=== PATIENT | female | born 1950 | race Caucasian/White ===

== ENCOUNTER 2017-03-16 09:50 | Inpatient (IN) | payer MEDICARE, BC ==
[~2017-03-16 09:50] MED LIST: ATROPINE 1 MG/10 ML SYRINGE IV; CEFAZOLIN 1 GM INJ; DIPHENHYDRAMINE 50 MG INJ IV; EPHEDrine SULFATE 50 MG/5 ML SYG IV; FENTAnyl 50 MCG/ML VIAL IV; HYDROmorphONE (0.2 MG/ML) 10ML SYG IV; LABETALOL HCL 20MG INJ IV; LIDOCAINE 100 MG SYRINGE; MEPERIDINE 25 MG INJ IV; MIDAZOLAM 1 MG/ML 2 ML INJ IV; ONDANSETRON 4 MG INJ IV; OXYCODONE/ACETAMINOPHEN (5/325) TAB PO; hydrALAzine 20 MG INJ IV; morphine (1 MG/ML) 10ML SYRINGE IV
[2017-03-16] MEDS ORDERED: GLYCOPYRROLATE 0.4 MG INJ (11:26)
[2017-03-16] MEDS ORDERED: PROPOFOL 20 ML (11:26)
[2017-03-16] MEDS ORDERED: ONDANSETRON 4 MG INJ (11:26)
[2017-03-16] MEDS ORDERED: MIDAZOLAM 1 MG/ML 2 ML INJ (11:26)
[2017-03-16] MEDS ORDERED: DEXAMETHASONE 4 MG/ML 1 ML INJ (11:26)
[2017-03-16] MEDS ORDERED: ROCURONIUM 50 MG INJ (11:26)
[2017-03-16] MEDS ORDERED: NEOSTIGMINE 3 MG/3 ML SYRINGE (11:26)
[2017-03-16] MEDS ORDERED: FENTAnyl 50 MCG/ML VIAL (11:26)
[2017-03-16] MEDS ORDERED: FUROSEMIDE 20 MG INJ ×2 (11:32→14:16)
[2017-03-16] MEDS: D5W-0.45 NACL + KCL 20 MEQ 1,000 ML IV ×2 (12:06→16:07)
[2017-03-16] MEDS ORDERED: GELATIN SIZE 100 SPONGE (12:17)
[2017-03-16] MEDS ORDERED: SUCCINYLCHOLINE CHLORIDE 100 MG/5 ML SYG IV (12:19)
[2017-03-16] MEDS ORDERED: HYDROmorphONE 0.5 MG/0.5 ML SYG IV (12:30)
[2017-03-16] MEDS ORDERED: ACETAMINOPHEN 325 MG TAB PO (12:30)
[2017-03-16] MEDS ORDERED: CYCLOBENZAPRINE 10 MG TAB PO (12:30)
[2017-03-16] MEDS ORDERED: NALOXONE (0.4 MG/ML) INJ IV (12:30)
[2017-03-16] MEDS ORDERED: DIPHENHYDRAMINE 50 MG INJ IV (12:30)
[2017-03-16] MEDS ORDERED: AL HYDROX/MG HYDROX/SIMETH 30 ML CUP PO (12:30)
[2017-03-16] MEDS ORDERED: DIPHENHYDRAMINE 25 MG CAP PO (12:30)
[2017-03-16] MEDS ORDERED: BISACODYL 10 MG SUPP PR (12:30)
[2017-03-16] MEDS ORDERED: ONDANSETRON 4 MG INJ IV (12:30)
[2017-03-16] MEDS ORDERED: CEPASTAT LOZENGE MT (12:30)
[2017-03-16] MEDS: CA CHLORIDE 10% 10 ML SYRINGE (13:46)
[2017-03-16] MEDS: CEFAZOLIN 1 GM INJ (13:46)
[2017-03-16] MEDS: BUPIVACAINE 0.5%/EPI (SDV) 30 ML INJ (13:46)
[2017-03-16] MEDS: SURGIFOAM POWDER 1 GM KIT (13:47)
[2017-03-16] MEDS: THROMBIN 5000 UNIT VIAL (13:47)
[2017-03-16] MEDS: HEPARIN 1000 UNITS/ML 10 ML INJ (13:47)
[2017-03-16] MEDS: BUPIVACAINE 0.25% (MPF) 30 ML INJ (14:29)
[2017-03-16] MEDS: CEFAZOLIN 1 GM/50 ML (PMX) 50 ML IVPB ×2 (14:30→23:28)
[2017-03-16] MEDS: FENTAnyl 50 MCG/ML VIAL (14:30)
[2017-03-16] MEDS: HYDROmorphONE 0.2 MG/ML PCA IV (15:52)
[2017-03-16] MEDS: DOCUSATE SODIUM 100 MG CAP PO (20:21)
[2017-03-16] MEDS: POTASSIUM CHLORIDE (SR) 10 MEQ TAB PO (20:23)
[2017-03-17] MEDS: D5W-0.45 NACL + KCL 20 MEQ 1,000 ML IV ×4 (05:14→18:06)
[2017-03-17] MEDS: CEFAZOLIN 1 GM/50 ML (PMX) 50 ML IVPB (05:15)
[2017-03-17] MEDS: PANTOPRAZOLE 40 MG INJ IV (05:15)
[2017-03-17 05:23] LABS: WHITE BLOOD COUNT 13.4 10^3/ul (4.8-10.8)
[2017-03-17 05:23] LABS: ADD MAN DIFF? NO; BASOPHILS % 0.1 % (0.0-2.0); EOSINOPHILS % 0.1 % (0.0-7.0); HEMATOCRIT 38.2 % (37.0-47.0); HEMOGLOBIN 13.3 g/dl (12.0-16.0); LYMPHOCYTES # 1.4 10^3/ul (0.8-2.9); LYMPHOCYTES % 10.7 % (15.0-51.0); MEAN CORPUSCULAR HEMOGLOBIN 32.3 pg (29.0-33.0); MEAN CORPUSCULAR HGB CONC 34.8 g/dl (32.0-37.0); MEAN CORPUSCULAR VOLUME 92.7 fl (82.0-101.0); MEAN PLATELET VOLUME 10.2 fl (7.4-10.4); MONOCYTE # 0.4 10^3/ul (0.3-0.9); MONOCYTES % 3.3 % (0.0-11.0); NEUTROPHIL # 11.3 10^3/ul (1.6-7.5); NEUTROPHILS % 84.6 % (39.0-77.0); PLATELET COUNT 288 10^3/UL (140-415); RED BLOOD COUNT 4.12 10^6/ul (4.20-5.40); RED CELL DISTRIBUTION WIDTH 12.9 % (11.5-14.5)
[2017-03-17 05:53] LABS: ANION GAP 14 (8-16); BLOOD UREA NITROGEN 15 mg/dl (7-20); CALCIUM 9.6 mg/dl (8.4-10.2); CARBON DIOXIDE 25 mmol/L (21-31); CHLORIDE 100 mmol/L (97-110); CREATININE 0.66 mg/dl (0.44-1.00); GLUCOSE 131 mg/dl (70-220); MAGNESIUM 1.8 mg/dl (1.7-2.5); POTASSIUM 4.2 mmol/L (3.5-5.1); SODIUM 135 mmol/L (135-144)
[2017-03-17] MEDS: POTASSIUM CHLORIDE (SR) 10 MEQ TAB PO ×2 (09:14→20:52)
[2017-03-17] MEDS: DOCUSATE SODIUM 100 MG CAP PO ×2 (09:14→20:52)
[2017-03-17] MEDS: POLYETHYLENE GLYCOL 17 GM PACKET PO (09:14)
[2017-03-17] MEDS: SPIRONOLACTONE 50 MG TAB PO (09:15)
[2017-03-17] MEDS: VALSARTAN 160 MG TAB PO (09:15)
[2017-03-17] MEDS: HYDROmorphONE 0.2 MG/ML PCA IV (13:48)
[2017-03-18] MEDS: D5W-0.45 NACL + KCL 20 MEQ 1,000 ML IV ×2 (01:04→14:06)
[2017-03-18] MEDS: PANTOPRAZOLE 40 MG INJ IV (05:09)
[2017-03-18 05:17] LABS: ADD MAN DIFF? NO
[2017-03-18 05:19] LABS: BASOPHILS % 0.2 % (0.0-2.0); EOSINOPHILS # 0.1 10^3/ul (0.0-0.5); EOSINOPHILS % 0.5 % (0.0-7.0); HEMOGLOBIN 12.5 g/dl (12.0-16.0); LYMPHOCYTES # 2.4 10^3/ul (0.8-2.9); LYMPHOCYTES % 21.5 % (15.0-51.0); MEAN CORPUSCULAR HEMOGLOBIN 31.5 pg (29.0-33.0); MEAN CORPUSCULAR HGB CONC 32.1 g/dl (32.0-37.0); MEAN CORPUSCULAR VOLUME 98.2 fl (82.0-101.0); MEAN PLATELET VOLUME 10.3 fl (7.4-10.4); MONOCYTE # 0.9 10^3/ul (0.3-0.9); MONOCYTES % 8.2 % (0.0-11.0); NEUTROPHIL # 7.7 10^3/ul (1.6-7.5); NEUTROPHILS % 68.7 % (39.0-77.0); PLATELET COUNT 243 10^3/UL (140-415); RED BLOOD COUNT 3.97 10^6/ul (4.20-5.40); RED CELL DISTRIBUTION WIDTH 13.2 % (11.5-14.5)
[2017-03-18 05:19] LABS: WHITE BLOOD COUNT 11.1 10^3/ul (4.8-10.8)
[2017-03-18 05:55] LABS: ANION GAP 12 (8-16); BLOOD UREA NITROGEN 17 mg/dl (7-20); CALCIUM 8.7 mg/dl (8.4-10.2); CARBON DIOXIDE 29 mmol/L (21-31); CHLORIDE 100 mmol/L (97-110); CREATININE 0.83 mg/dl (0.44-1.00); GLUCOSE 102 mg/dl (70-220); MAGNESIUM 1.8 mg/dl (1.7-2.5); POTASSIUM 4.4 mmol/L (3.5-5.1); SODIUM 137 mmol/L (135-144)
[2017-03-18] MEDS: POTASSIUM CHLORIDE (SR) 10 MEQ TAB PO ×2 (08:48→20:06)
[2017-03-18] MEDS: SPIRONOLACTONE 50 MG TAB PO (08:48)
[2017-03-18] MEDS: DOCUSATE SODIUM 100 MG CAP PO ×2 (08:48→20:05)
[2017-03-18] MEDS: POLYETHYLENE GLYCOL 17 GM PACKET PO (08:49)
[2017-03-18] MEDS: VALSARTAN 160 MG TAB PO (09:00)
[2017-03-18] MEDS: HYDROCODONE/APAP (10/325) TAB PO ×4 (09:52→22:31)
[2017-03-18] MEDS ORDERED: HYDROCODONE/APAP (10/325) TAB PO (10:00)
[2017-03-19] MEDS: D5W-0.45 NACL + KCL 20 MEQ 1,000 ML IV ×2 (00:06→10:06)
[2017-03-19] MEDS: PANTOPRAZOLE (EC) 40 MG TAB PO (05:11)
[2017-03-19] MEDS: HYDROCODONE/APAP (10/325) TAB PO ×3 (05:11→16:10)
[2017-03-19 05:40] LABS: ADD MAN DIFF? NO
[2017-03-19 05:45] LABS: WHITE BLOOD COUNT 9.7 10^3/ul (4.8-10.8)
[2017-03-19 05:45] LABS: BASOPHILS % 0.4 % (0.0-2.0); EOSINOPHILS # 0.2 10^3/ul (0.0-0.5); EOSINOPHILS % 1.8 % (0.0-7.0); HEMATOCRIT 37.7 % (37.0-47.0); HEMOGLOBIN 12.3 g/dl (12.0-16.0); LYMPHOCYTES # 2.6 10^3/ul (0.8-2.9); MEAN CORPUSCULAR HEMOGLOBIN 31.8 pg (29.0-33.0); MEAN CORPUSCULAR HGB CONC 32.6 g/dl (32.0-37.0); MEAN CORPUSCULAR VOLUME 97.4 fl (82.0-101.0); MEAN PLATELET VOLUME 10.4 fl (7.4-10.4); MONOCYTES % 10.7 % (0.0-11.0); NEUTROPHIL # 5.8 10^3/ul (1.6-7.5); NEUTROPHILS % 59.2 % (39.0-77.0); PLATELET COUNT 232 10^3/UL (140-415); RED BLOOD COUNT 3.87 10^6/ul (4.20-5.40); RED CELL DISTRIBUTION WIDTH 13.1 % (11.5-14.5)
[2017-03-19 06:23] LABS: ANION GAP 12 (8-16); BLOOD UREA NITROGEN 16 mg/dl (7-20); CALCIUM 8.8 mg/dl (8.4-10.2); CARBON DIOXIDE 30 mmol/L (21-31); CHLORIDE 99 mmol/L (97-110); CREATININE 0.71 mg/dl (0.44-1.00); GLUCOSE 102 mg/dl (70-220); MAGNESIUM 1.8 mg/dl (1.7-2.5); POTASSIUM 4.4 mmol/L (3.5-5.1); SODIUM 137 mmol/L (135-144)
[2017-03-19] MEDS: POTASSIUM CHLORIDE (SR) 10 MEQ TAB PO (09:00)
[2017-03-19] MEDS: DOCUSATE SODIUM 100 MG CAP PO (09:00)
[2017-03-19] MEDS: POLYETHYLENE GLYCOL 17 GM PACKET PO (09:00)
[2017-03-19] MEDS: VALSARTAN 160 MG TAB PO (09:00)
[2017-03-19] MEDS: SPIRONOLACTONE 50 MG TAB PO (09:00)
== END 2017-03-19 17:25 | disposition home or self-care (01) | DRG 517 ==
LOC: REC 09:50 → MS1 19:10
PROC: 01NB0ZZ Release Lumbar Nerve, Open Approach (ICD-10-PCS; principal; 2017-03-16 12:00)
DX: M48.061 Spinal stenosis, lumbar region without neurogenic claudication (principal); E66.01 Morbid (severe) obesity due to excess calories; I10 Essential (primary) hypertension; M54.16 Radiculopathy, lumbar region; M48.07 Spinal stenosis, lumbosacral region; M54.17 Radiculopathy, lumbosacral region; I89.0 Lymphedema, not elsewhere classified; M10.9 Gout, unspecified; Z87.891 Personal history of nicotine dependence; Z68.35 Body mass index [BMI] 35.0-35.9, adult
CPT/HCPCS: 72020; 80048; 83735; 85025; 86850; 86900; 86901; 86920; 86999; 88304; 88311; 97110; 97116; 97530; J1940